=== PATIENT | male | born 1995 | race Two or more races ===

== ENCOUNTER 2022-05-08 16:01 | Emergency (ER) | payer OTHER ==
[2022-05-08] MEDS ORDERED: KETOROLAC TROMETHAMINE 30 MG/1 ML VIAL IM ONE (16:18)
[2022-05-08] MEDS ORDERED: KETOROLAC TROMETHAMINE 30 MG/1 ML VIAL ONE (16:23)
[2022-05-08 16:45] VITALS: BP 128/60; PULSE 72; RESP 18; TEMP 97.6; BMI 23.1
== END 2022-05-08 17:32 | disposition home or self-care (01) ==
LOC: FER 16:01
PROC: 3E0233Z Introduction of Anti-inflammatory into Muscle, Percutaneous Approach (ICD-10-PCS; principal; 2022-05-08)
DX: R07.89 Other chest pain (principal)
CPT/HCPCS: 71046-TC-FY; 93005; 99284-25